=== PATIENT | male | born 1945 | race Caucasian/White ===

== ENCOUNTER 2021-05-01 23:22 | Inpatient (IN) | payer OTHER, MEDICARE, SELFPAY ==
--- NOTE | ~2021-05-01 | XR_ITS ---
EXAMINATION: XR CHEST CLINICAL INFORMATION: TLC placement. COMPARISON: None TECHNIQUE: Frontal view of the chest was obtained. FINDINGS: Support devices: A right-sided central venous catheter seen with tip terminating in the superior vena cava. The lungs appear clear when accounting for hypoinflation. No pneumothorax. The heart and mediastinal structures are unremarkable. XR/XR chest 1V IMPRESSION: 1. Right TLC appears in good position. 2. Hypoinflation without acute cardiopulmonary process.
--- NOTE | ~2021-05-01 | NM_ITS ---
EXAMINATION: PULMONARY PERFUSION STUDY CLINICAL INFORMATION: Acute right ventricular failure, rule out PE. COMPARISON: No previous lung scan is available for comparison. Radiographs of the chest dated 05/02/2021, the same date as this lung scan, are available for comparison. TECHNIQUE: Following the intravenous injection of 4.0 mCi Tc-99m MAA, an 8-view perfusion study was performed using a gamma scintillation camera. FINDINGS: No segmental perfusion defects are present. There is homogeneous distribution of activity bilaterally. There are no focal anatomic appearing perfusion defects present. The cardiac silhouette is mildly dilated. NM/NM pul perfusion IMPRESSION: Very low probability of pulmonary embolism. Mild cardiomegaly.
--- NOTE | ~2021-05-01 | US_ITS ---
EXAMINATION: US VENOUS ULTRASOUND WITH DOPPLER LOWER EXTREMITY, BILATERAL CLINICAL INFORMATION: Bilateral lower extremity swelling. Assess for occult DVT. COMPARISON: None TECHNIQUE: Ultrasound of the deep veins is performed from the hip to the calf with compression sonography and color and pulse Doppler assessment. Spectral analysis with color-flow imaging is performed. Exam is technically challenging, performed portably in ICU. FINDINGS: RIGHT: There is normal venous compression and respiratory variation and augmented flow. The visualized common femoral vein, superficial femoral vein, profunda femoral vein, popliteal vein, and the trifurcation region shows no evidence of deep venous thrombosis. No visible popliteal fossa cyst. LEFT: There is normal venous compression and respiratory variation and augmented flow. The visualized common femoral vein, superficial femoral vein, profunda femoral vein, popliteal vein, and the trifurcation region shows no evidence of deep venous thrombosis. No visible popliteal fossa cyst. US/US venous duplex LE BI IMPRESSION: 1. No DVT demonstrated in the bilateral lower extremity. 2. Technically challenging exam, performed portably in ICU. If the patient's symptoms persist, followup ultrasound in 5 days 7 days might be of value to exclude proximal propagation from a non-visualized calf vein.
[2021-05-02] VITALS (30 sets, daily range): BP systolic 66–121; BP diastolic 36–94; PULSE 47–104; RESP 6–24; TEMP 35.9–36.4; O2SAT 89–100; BMI 34.4; BMI 33.9
--- NOTE | 2021-05-02 | ECG_ITS ---
Test Reason : RHYTHM CHECK Blood Pressure : / mmHG Vent. Rate : 061 BPM Atrial Rate : 063 BPM P-R Int : 000 ms QRS Dur : 102 ms QT Int : 432 ms P-R-T Axes : 000 019 058 degrees QTc Int : 434 ms Atrial fibrillation Abnormal ECG No previous ECGs available Referred By: Bob Saunders Electronically Signed By:JM COTTON
[2021-05-02 00:40] LABS: VBG HCO3 17 mmol/L (22-26); VBG pCO2 26 mmHg; VBG pH 7.43 (7.32-7.43); VBG pO2 61 mmHg
[2021-05-02] MEDS: Sodium Bicarbonate 8.4% 50 MEQ/50 ML VIAL IVPUSH (00:48)
[2021-05-02 00:49] LABS: Hematocrit 28.3 % (42-52); Hemoglobin 9.7 g/dl (14.0-18.0); Mean Corpuscular HGB Conc 34.3 g/dl (31.0-36.0); Mean Corpuscular Volume 84.7 fL (80-98); Mean Platelet Volume 11.1 fL (9.4-12.4); NRBC Pct Auto 1.1 /100WBC (0.0-0.2); Platelet Count 159 X10*3/uL (160-400); Red Blood Count 3.34 X10*6/uL (4.60-5.80); Red Cell Distribution Width 18.5 % (11.0-16.0)
[2021-05-02] MEDS: Albumin Human 25 % 100 ML IV (01:10)
[2021-05-02 01:12] LABS: Band Neutrophils Percent 10 % (3-5); Basophils Abs Manual 0.1 X10*3/uL (0.0-0.3); Basophils Percent Manual 1 % (0-1); Lymphocytes Absolute Manual 0.1 X10*3/uL (0.6-4.8); Lymphocytes Percent Manual 1 % (20-40); Metamyelocytes Percent 7 %; Monocytes Absolute Manual 0.6 X10*3/uL (0.0-1.2); Monocytes Percent Manual 4 % (2-11); Myelocytes Absolute 0.1 X10*/uL; Myelocytes Percent 1 %; Neutrophils Percent Manual 76 % (45-73)
[2021-05-02 01:13] LABS: Lactic Acid 4.2 mmol/L (0.5-2.0); Large Platelet PRESENT; Nucleated Red Blood Cells 1 /100WBC (0-0); Platelet Estimate NORMAL (NORMAL); Platelet Morphology Comment NOTED; Polychromasia 1+ (0-2) /OIF; RBC Morphology NOTED; Target Cells 1+ (5-14) /OIF; Toxic Granulation PRESENT
[2021-05-02 01:15] LABS: Alanine Aminotransferase 167 U/L (0-40); Albumin Level 3.8 g/dL (3.5-5.0); Alkaline Phosphatase 362 U/L (39-117); Anion Gap 24 (12-20); Aspartate Amino Transferase 674 U/L (5-37); Bilirubin Total 6.3 mg/dL (0.0-1.0); Blood Urea Nitrogen 87 mg/dL (9-16); Carbon Dioxide 16 mmol/L (22-29); Chloride 93 mmol/L (96-108); Estimated Glomerular Filt Rate 8; Glucose Random 29 mg/dL (60-115); Magnesium 2.3 mg/dL (1.6-2.6); Phosphorus 6.1 mg/dL (2.7-4.5); Potassium 5.2 mmol/L (3.3-5.1); Sodium 128 mmol/L (135-145); Total Protein 6.9 g/dL (6.5-8.0)
[2021-05-02 01:30] LABS: Thyroid Stimulating Hormone 1.54 uIU/mL (0.32-4.0)
--- NOTE | 2021-05-02 01:37 | P.HPCC_ITS ---
History of Present Illness Date of Service: 05/02/21 Chief Complaint: Hypotension The patient is a 76 year old male with a past medical history of atrial fibrillation (on Eliquis ), hypertension, hyperlipidemia,? and throat cancer? ( last radiation 1 month ago )? who is presenting to [facility] as a ED to ICU transfer from [facility]. The patient ? presented to [facility] emergency department on Sunday afternoon with complaints of generalized weakness and decreased oral intake.? According to the , over the past few weeks the patient has had? difficulty urinating, multiple episodes of diarrhea? and poor? appetite? with noticeable weight loss.? ?On arrival? to [facility] ED, patient was hypotensive to SBP 70s? with HR in the 50s? initially responded? to? 3.5 L bolus and albumin,? but later during the day patient? again? noted to be hypotensive? requiring? placement of central venous line for vasopressor support? [facility] ED course:? Nephrology was consulted,? who advised for starting bicarb drip (D5w + 3 of sodium bicarb) and kayexalate. Patient also received? Zosyn, 500ml of 5% albumin, 100ml of 25% Albumin, 100 hydrocortisone, Dopamine drip started for hypotension and bradycardia but was quickly switched to levophed.? Transfer paperwork reviewed:? ? Laboratory data in was significant for? WBC 18.4,? sodium 126, potassium 5.9,? serum bicarb 19,? creatinine 6.4, total bilirubin 6.1, AST 1196, ALT 233, alk- phos of 465, albumin 2.5,? lactic acid 4.4, Urine:? positive for nitrates and white count. CT Impressions from [facility]? Head CT:? no evidence of acute abnormality Chest CT:? 1- Low-density lesion of the right lower lobe,? concerning neoplasm.?? 2- Mildly enlarged mediastinal lymph nodes? concerning metastatic disease.? 3- Mosaic attenuation of the lungs, most likely? represents small airways disease Abdomen CT:? 1-? multiple liver lesions likely representing metastatic disease? 2-? small amount of abdominal pelvic ascites ?Patient direct admit? to ICU for management of hock requiring vasopressor support? Review of Systems Review of Systems: Constitutional: + weight loss, weakness and fatigue. No fever, chills, Eyes: No visual loss, blurred vision, double vision or yellow sclera ENT: No hearing loss, sneezing, congestion, runny nose or sore throat. Respiratory: No Dyspnea, cough, sputum. No hemoptysis. Cardiovascular: No chest pain, No palpitations. (+)pedal edema. Gastrointestinal: No anorexia, nausea, vomiting or diarrhea. No abdominal pain or blood in stool. Genitourinary: + difficulty urinating. No urinary frequency or incontinence. Neurologic: No headache, dizziness, syncope, unilateral weakness, ataxia, numbness or tingling in the extremities. No change in bowel or bladder control. Musculoskeletal: No muscle pain, back pain, joint pain or stiffness. Skin: No rash or itching. Endocrine: No reports of sweating. No cold or heat intolerance. No polyuria or polydipsia. Psychiatric: No depression or anxiety. 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 If so, by whom?: No Do you feel safe in your current relationship?: Yes Is there a partner from a previous relationship who is making you feel unsafe now?: No Are you made to feel afraid or neglected: No Advance Directives: No Advance Directives Information Provided: No Do you have thoughts of harming others: None Do you have a plan to hurt others: No Plan Recently lost weight without trying: Yes How much weight loss: 2-13 pounds Eating poorly because of decreased appetite: Yes Nutrition screen score: 4 Nutrition Risks: Difficulty swallowing Poor oral hygiene: No Meds Allergies Allergy/AdvReac Type Severity Reaction Status Date / Time No Known Allergies Allergy Verified 05/01/21 23:22 Active Medications: Current Medications Generic Name Dose Route Start Last Admin Trade Name Freq PRN Reason Stop Dose Admin Heparin Sodium (Porcine) 5,000 unit 05/02/21 06:00 Heparin Sodium,Porcine 5,000 Unit/Ml Vial SUBCUT Q8H [facility] Norepinephrine Bitartrate 8 mg in 250 mls @ 0 mls/hr 05/02/21 00:45 05/02/21 00:36 Levophed IVCONT 0.4 mcg/kg/min .Q0M DANIELLE 86.25 mls/hr Titration Protocol Per Protocol Albumin Human 100 mls @ 100 mls/hr 05/02/21 00:47 Kedbumin 25 % IV 05/02/21 01:46 ONCE ONE Vancomycin HCl 750 mg/ Sodium 265 mls @ 265 mls/hr 05/02/21 01:25 Chloride IV 05/02/21 02:24 ONCE ONE Piperacillin Sod/Tazobactam 50 mls @ 100 mls/hr 05/02/21 03:00 Sod 2.25 gm/ Sodium Chloride IV Q12H [facility] Pharmacy Consult 1 each 05/02/21 01:25 Consult Rx Vancomycin Dosing MISCELLANE DAILY PRN Consult order Physical Exam Vital Signs: Vital Signs: Last Vital Signs Temp 97.5 F 05/02/21 00:58 Pulse 51 05/02/21 01:05 Resp 16 05/02/21 01:05 BP 93/51 L 05/02/21 01:05 Pulse Ox 92 05/02/21 01:05 Body Mass Index 34.4 Focused assessment performed on arrival 0005 Constitutional: Alert, Slightly lethargic, but able to open eyes and answer questions. Mental Status: Oriented to person, place and time. Head: Normocephalic. Eyes: Jaundice noticed. Pupils are equal, round and reactive to light Ear, dry mucous membranes. Nose and Throat: Oropharynx cleart. Trachea midline. Neck: Supple, Respiratory: Lungs with crackles. Satting 90-92% on room air. Minor increased work of breathing.?Placed on 2 L via NC Cardiovascular: Afib on monitor. No murmurs, rubs or gallops. Noormal cap refill Gastrointestinal: Abdomen soft, non-tender, non-distended. Normal bowel sounds. No pulsatile mass. No hepatosplenomegaly. Acute care time Genitourinary: Heard present, hematuria. Neurologic: Cranial nerves II-XII grossly intact. No focal neurological deficits. Moves all extremities spontaneously. Sensation intact bilaterally. Skin: Skin dry intact. .? Bilateral pitting lower extremity edema. Musculoskeletal: No cyanosis or clubbing. No gross deformities. Normal range of motion. Psychiatric: Normal mood and affect Results Labs CBC and Chem 7: 05/02/21 00:37 05/02/21 00:37 Labs: Laboratory Results - last 24 hr 05/02/21 05/02/21 05/02/21 00:32 00:37 00:37 MCV 84.7 MCH 29.0 MCHC 34.3 RDW 18.5 H Plt Count 159 L MPV 11.1 Immature Gran % (Auto) Cancelled Neut % (Auto) Cancelled Lymph % (Auto) Cancelled [place] % (Auto) Cancelled Eos % (Auto) Cancelled Baso % (Auto) Cancelled Lymph # (Auto) Cancelled [place] # (Auto) Cancelled Eos # (Auto) Cancelled Baso # (Auto) Cancelled Abs Immat Gran (auto) Cancelled Absolute Neuts (auto) Cancelled Absolute Nucleated RBC 0.160 H Nucleated RBC % (auto) 1.1 H Neutrophils % (Manual) 76 H Band Neutrophils % 10 H Lymphocytes % (Manual) 1 L Monocytes % (Manual) 4 Basophils % (Manual) 1 Metamyelocytes % 7 Myelocytes % 1 Abs Neuts (Manual) 12.0 H Lymphocytes # (Manual) 0.1 L Monocytes # (Manual) 0.6 Basophils # (Manual) 0.1 Metamyelocytes # 1.0 Myelocytes # 0.1 Nucleated RBCs 1 H Toxic Granulation PRESENT Platelet Estimate NORMAL Large Platelets PRESENT Plt Morphology Comment NOTED RBC Morphology NOTED Polychromasia 1+ (0-2) Target Cells 1+ (5-14) VBG pH 7.43 VBG pCO2 26 VBG pO2 61 VBG HCO3 17 L VBG O2 Saturation 87.0 VBG Base Excess -5.0 Anion Gap 24 H Estim Creat Clear Calc 12.0 Estimated GFR 8 Random Glucose 29 L* Lactic Acid Calcium 9.0 Phosphorus 6.1 H Magnesium 2.3 Total Bilirubin 6.3 H AST 674 H ALT 167 H Alkaline Phosphatase 362 H Total Protein 6.9 Albumin 3.8 TSH 1.54 05/02/21 00:37 MCV MCH MCHC RDW Plt Count MPV Immature Gran % (Auto) Neut % (Auto) Lymph % (Auto) [place] % (Auto) Eos % (Auto) Baso % (Auto) Lymph # (Auto) [place] # (Auto) Eos # (Auto) Baso # (Auto) Abs Immat Gran (auto) Absolute Neuts (auto) Absolute Nucleated RBC Nucleated RBC % (auto) Neutrophils % (Manual) Band Neutrophils % Lymphocytes % (Manual) Monocytes % (Manual) Basophils % (Manual) Metamyelocytes % Myelocytes % Abs Neuts (Manual) Lymphocytes # (Manual) Monocytes # (Manual) Basophils # (Manual) Metamyelocytes # Myelocytes # Nucleated RBCs Toxic Granulation Platelet Estimate Large Platelets Plt Morphology Comment RBC Morphology Polychromasia Target Cells VBG pH VBG pCO2 VBG pO2 VBG HCO3 VBG O2 Saturation VBG Base Excess Anion Gap Estim Creat Clear Calc Estimated GFR Random Glucose Lactic Acid 4.2 H* Calcium Phosphorus Magnesium Total Bilirubin AST ALT Alkaline Phosphatase Total Protein Albumin TSH Imaging Radiologist's Impressions: Impressions Chest X-Ray 05/02/21 00:30 IMPRESSION: 1. Right TLC appears in good position. 2. Hypoinflation without acute cardiopulmonary process. Assessment and Plan (1) Septic shock: Status: Acute ?76-year-old male? with a past medical history of? throat cancer? status post radiation x 1 month ago? who presented to? [facility]? with hypotension? and poor p.o. intake ,? patient? in septic shock from possible urinary source.? Incidental findings? in CT scan showed new liver lesions? as we ll as lung? lesions? likely? from metastatic disease.? Neuro: Altered mental status, Patient is lethargic.? Most likely due to? infection. Will continue to monitor mental status Cardiac:?? Septic shock, Sereum WBC 18,? urine positive for? nitrates as well as WBC, elevated lactic acid to 4. ? No evidence of acute infection on Chest/ Abdomen CTs.? UTI likely cause of septic shock.? Received? stress dose of hydrocortisone as well as appropriate? fluid resuscitation with 3.5L of NS and albumin at [facility] ED.? On Levophed. ? Will continue empiric antibiotics.? Wean off pressors when appropriate. Pulmonary:? ?No acute issues Renal:?? Acute Kidney Injury-? creatinine? of 6.[facility], now 6.59 ,? has had poor p.o. Intake? as well as some difficulty urinating in the past couple days,? RADHA most likely related to hypoperfusion, nonoliguric. ? Renal? consulted our [facility] Medical,? advice for bicarb drip x 1? and? Kayexalate. Received appropriate fluid resuscitation.? Will continue to to check renal induces and urine output.? Renal consult? here at [place].? Hyperkalemia - K of 5.9 at [facility], down to 5.2. No peaked T waves.? Received Kayexalate at? [facility]. Will continue to closely monitor for symptoms of hyperkalemia. Hematuria:? bloody urine was noted in the Heard catheter ? With some clots.? Nursing? able to flush catheter.? Hemoglobin is stable at this time.? Will cont inue to closely monitor.? Urology consult in the morning.? Endo:? No acute issues.?? GI:?Patient with difficulty swallowing-? will place speech eval in the morning.? ID:? Septic shock from UTI.? Patient received Zosyn in [facility] ED. Blood cultures as well as urine culture done at [facility].? Will repeat blood cultures here. Will continue Zosyn, and add empiric dose of vancomycin. Heme/Onc:?? Throat cancer with ? Mets:? patient status post radiation x1 month ago, ? did not receive chemo. Chest CT and Abdomen CT with new lesions? concerning for metastatic disease.? Psych:? No acute issues. Miscellaneous:?? ?I personally called patient?s Bryanna Bentley,? review plan of care and CT scans? findings as goals of care at this time. ? Patient and would like to continue full code.? Diet: NPO ( pending speech eval) prophylaxis: Subcut Heparin, (Holding eliquis at this time). No GI prophylaxis at this time Critical care time:? X 90 minutes of critical care time Code? status: FULL code? ?Case discussed with attending Dr Mar (2) UTI (urinary tract infection): Status: Acute (3) Acute renal failure: Status: Acute (4) RADHA (acute kidney injury): Status: Acute (5) Hematuria: Status: Acute (6) Metastatic cancer: Status: Acute (7) Hyperkalemia: Status: Acute
[2021-05-02 01:44] LABS: Glucose, Whole Blood 104 mg/dL (60-115)
[2021-05-02 01:46] LABS: Venous Blood Gas Refer to POC result
[2021-05-02] MEDS: vancomycin HCL 750 MG in 0.9 % Sodium Chloride 250 ML 132.5 MG IV (02:16)
[2021-05-02] MEDS: Piperacillin Sodium/Tazobactam 2.25 GM in 0.9 % Sodium Chloride 50 ML IV ×2 (02:17→15:03)
[2021-05-02 02:46] LABS: Reflex Lactate? Lactic Acid Added
--- NOTE | 2021-05-02 03:23 | PC.NURSE ---
Report received from Dania Garcia RN at [facility]. Patient requiring transfer to ICU level of care for levophed gtt. Patient arrived to unit at 0005, via stretcher/ambulance. Patient had normal saline infusing through central line. Per EMS, levophed drip was turned off at [facility] prior to transport. Initial BP on arrival was in the 60s. patient was placed back on a levophed drip, and drip was titrated as necessary. Patient was able to communicate some history but was vague with some responses.
[2021-05-02 03:43] LABS: ~Lactic Acid-LAB USE ONLY 5.3 mmol/L (0.5-2.0)
[2021-05-02 05:16] LABS: Reflex Lactate? 2 Y
[2021-05-02 05:28] LABS: VBG Base Excess -6.8 mmol/L; VBG HCO3 17 mmol/L (22-26); VBG pCO2 29 mmHg; VBG pH 7.37 (7.32-7.43); VBG pO2 41 mmHg
[2021-05-02 05:36] LABS: Hemoglobin 10.3 g/dl (14.0-18.0); Mean Corpuscular HGB Conc 34.3 g/dl (31.0-36.0); Mean Corpuscular Hemoglobin 29.4 pg (27.0-33.0); Mean Corpuscular Volume 85.7 fL (80-98); Mean Platelet Volume 11.6 fL (9.4-12.4); NRBC Pct Auto 1.3 /100WBC (0.0-0.2); Platelet Count 206 X10*3/uL (160-400); Red Cell Distribution Width 18.9 % (11.0-16.0); White Blood Count 23.7 X10*3/uL (4.8-10.8)
[2021-05-02 05:56] LABS: Band Neutrophils Percent 15 % (3-5); Burr Cells 1+ (0-2) /OIF; Giant Platelet PRESENT; Large Platelet PRESENT; Lymphocytes Absolute Manual 1.7 X10*3/uL (0.6-4.8); Lymphocytes Percent Manual 7 % (20-40); Metamyelocytes Absolute 1.4 X10*3/uL; Metamyelocytes Percent 6 %; Monocytes Absolute Manual 1.2 X10*3/uL (0.0-1.2); Monocytes Percent Manual 5 % (2-11); Myelocytes Absolute 0.5 X10*/uL; Myelocytes Percent 2 %; Neutrophils Percent Manual 65 % (45-73); Nucleated Red Blood Cells 3 /100WBC (0-0); Platelet Estimate NORMAL (NORMAL); Platelet Morphology Comment NOTED; Polychromasia 1+ (0-2) /OIF; RBC Morphology NOTED; Target Cells 1+ (5-14) /OIF; Toxic Granulation PRESENT
[2021-05-02 06:04] LABS: Alanine Aminotransferase 174 U/L (0-40); Alkaline Phosphatase 365 U/L (39-117); Anion Gap 27 (12-20); Aspartate Amino Transferase 720 U/L (5-37); Bilirubin Total 6.6 mg/dL (0.0-1.0); Blood Urea Nitrogen 88 mg/dL (9-16); Calcium 8.9 mg/dL (8.4-10.2); Carbon Dioxide 15 mmol/L (22-29); Chloride 92 mmol/L (96-108); Creatinine Clr Calc Pharmacy 11.8; Estimated Glomerular Filt Rate 8; Glucose Random 42 mg/dL (60-115); Magnesium 2.4 mg/dL (1.6-2.6); Phosphorus 6.9 mg/dL (2.7-4.5); Potassium 5.6 mmol/L (3.3-5.1); Sodium 128 mmol/L (135-145); Total Protein 7.3 g/dL (6.5-8.0)
[2021-05-02 06:05] LABS: ~Lactic Acid-LAB USE ONLY 5.1 mmol/L (0.5-2.0)
[2021-05-02] MEDS: Dextrose 10 % 1,000 ML 50 ML IVCONT (06:26)
[2021-05-02 07:01] LABS: Glucose, Whole Blood 107 mg/dL (60-115)
[2021-05-02 07:08] LABS: Ammonia 73 umol/L (13-55)
[2021-05-02 07:11] LABS: Venous Blood Gas Refer to POC result
--- NOTE | 2021-05-02 08:23 | P.CDIC_ITS ---
CDI Concurrent Query Service Date: 05/03/21 Documentation Clarification: Please clarify if you are treating a proba ble/suspected/likely or confirmed: Altered mental status: Septic encephalopathy Toxic encephalopathy Metabolic encephalopathy Other Please specify if known or undetermined Provider Response: Metabolic Encephalopathy PLEASE DO NOT DELETE/MODIFY EXISTING CONTENT Additional information is needed in order to code to the highest accuracy and appropriate Severity of Illness (SOI). Please clarify the information noted below in your progress notes and discharge summary. Risk Factors/Clinical Indicators/Treatments Altered mental status, most likely due to the infection. poor intake, septic shock likely from the urinary tract infection/RADHA. ICU admit. Weight loss, throat cancer concerning for mets. Empiric antibiotics for infection, vasopressors, IV fluids. CDS: Genoveva Green CCS, CDIS Contact Number: [phone] Please Review the information above and exercise your independent professional judgment in responding to the query. If you concur, pleas document in the PROGRESS NOTES and DISCHARGE SUMMARY. If you do not agree with the query, please document in the query above. THIS QUERY IS PART OF THE PERMANENT MEDICAL RECORD
--- NOTE | 2021-05-02 08:31 | HE.PHANOTE ---
Pharmacy Consult ? Medication Reconciliation Pharmacy has completed the medication reconciliation and there were no significant medication issues requiring provider attention.? Kortney ChavezD
--- NOTE | 2021-05-02 10:00 | MHC.CM.PN ---
05/02/21 IM from [facility] Male 76 DX Hypotension He lives with his . He has physically declined in the past month. At baseline, he was using a cane and was independent with ADLs. Pts PCP is DR Moore @[facility]. PCP is new. He has not had an appointment yet. His former MD left the practice. DP is STR for strengthening. T/W spoke with Pt and his for preferences for STR. Referrals have been sent. A HCP has been documented. CM will follow.
[2021-05-02] MEDS: Sodium Bicarbonate 8.4% 150 MEQ in Dextrose 5 % 850 ML 75 MEQ IV (10:29)
[2021-05-02] MEDS: DOPamine HCL/D5W 400 MG/250 ML PLAST..BAG 21.26 MG IVCONT (10:39)
--- NOTE | 2021-05-02 10:39 | MHC.SL.SWA ---
Speech Pathologist Impression: Risk of Aspiration Oralpharyngeal Dysphagia Dysphasia Diet Status: Upgrade Liquid Consistency and Strategies for Safe Swallow: Liquid Intake Recommendation: Honey Thick Liquid Intake Strategies: Small Sips No Straws Solid Food Consistency: Dietary Recommendations: Chopped/Advanced (NDD3) Additional Modifications to Solid Foods: Recommend CHOPPED/ADVANCED (NDD3) solids and HONEY THICK liquids with pills WHOLE in PUREE. Patient is able to feed himself, but may require assistance with tray set up. Recommend supervision to monitor for any overt s/s of aspiration and to ensure aspiration precautions. Oral Medication Intake: Whole with Puree Compensatory Strategies and Precautions to be Taken for Safe Swallow: Sitting Upright (90 deg) No Straw Small Bites and Sips Alternate Liquids/Solids Rate of Ingestion Change Oral Check Supervision While Eating and Drinking for Safe Swallow: Total Supervision (1:1) Foods to Avoid: Avoid tough/sticky foods. Recommend supervision to monitor for any overt s/s of aspiration and to ensure aspiration precautions. Swallowing Recommended Treatments: Compens. Strategy Educat. Recommendation for Speech: Inpatient Speech Therapy Modified Barium Swallow Study - Outpatient Comment: [facility]TER will continue to follow as appropriate during hospitalization. Given history of throat cancer, patient may benefit from MBSS if concern persists. Senior Investigator Clinican/Clinical Fellow: No Supervisory Statement: I have reviewed and agree with the student/clinical fellow's documentation: N/A Speech Language Pathologist: Hollie Moreau M.A., [facility]
--- NOTE | 2021-05-02 10:46 | CA_ITS ---
Transthoracic Echocardiogram Patient (Last, First, Middle): Berry Calhoun F Gender: Male Date of : 1945 Age: 76 Procedure Date: 05/02/2021 Procedure Type: Transthoracic Echocardiogram Location: ICU Height: 182.88 cm Weight: 113.4 kg BSA: 2.34 m2 Heart Rate: bpm BP: 115 / 52 mmHg Hot Packer: FRANCISCO Larios MD: Ismael Seals MD Staff Nurse Icu Resource Team: Kimani Martinez MD Symptoms: refractory hypotension. R/o PE Study Quality: Fair ECG Rhythm: Undetermined Conclusions: - 1. Normal LV systolic function 2. Enlarged RV with free wall hypokinesis could suggest acute cor pulmonale 3. Moderate to severe tricuspid regurgitation 4. Consider a full echocardiographic study Findings Left Ventricle Normal left ventricular size, thickness, and systolic function. The visually estimated ejection fraction is between 55-60%. There is a flattened septum in systole consistent with right ventricular pressure overload. Diastolic function is indeterminate on the basis of available data. Right Ventricle Severely increased right ventricular cavity size. There is mild to moderately decreased right ventricular systolic function. The right ventricular free wall is hypokinetic. Tricuspid Valve There is moderate to severe tricuspid valve regurgitation. Venous The inferior vena cava was not well visualized. Pericardium/Pleural There is no evidence of pericardial effusion. Prior Study Comparison No prior study available for comparison. Measurements Tricuspid Valve TR Pk Elder: 2.40 TR Pk Grad: 23.00 Updated in Other Vendor System with Status of Final Kimani Martinez MD electronically signed on 05/02/2021 11:54:15 AM with status of Final
--- NOTE | 2021-05-02 11:21 | P.PNCC_ITS ---
Subjective Subjective Date of Service: 05/02/21 Critical Care Time (minutes): 180 Comment: Mr. Calhoun was transferred to ICU from the [facility] ED late last night bec of hypotension and presumed septic shock.? There were no ICU beds available at [facility]. The patient is a 68-year-old male with past medical history of throat cancer, status post excision of a vocal cord lesion, and status post radiation therapy, last XRT treatment was a month or more ago.? According to the patient and his , they got all the tumor and no chemotherapy was needed.? The patient also has a history of hypertension, and atrial fibrillation.? He is on atenelol, losartan, Procardia, and apixaban.? I spoke with Dr. Maik Soto.? We looked through the [facility] EMR system and through the cardiology office records.? The patient had no records of a previous echocardiogram.? The patient lives at home with his , who is a fourdrinier tender (Bryanna Bentley, ). HISTORY OF PRESENT ILLNESS: ?The patient was reportedly doing well after his radiation.? However, over the past few days has developed generalized weakness and poor p.o. intake and generally not feeling well.? The patient's noticed that he was jaundiced.? She brought him in the car to the [facility] ED yesterday just before noon. In the ED, the patient was hypotensive with a blood pressure 70/52, and heart rate of 58.? Room air saturation was 100%.? He was afebrile.? He was in no acute distress.? He was talking and oriented, and denied fever chills or sweats.? He denied cough or shortness of breath, or GI symptoms.? The abdomen was benign, stool was guaiac negative. Labs in the ED at [facility] were notable for white count of 18, hemoglobin of 11, platelet count of 176. PT was 22/1.9.? The sodium was 126, potassium 5.9, chloride 92, bicarb 19, BUN and creatinine 87/6.4, glucose 84, total bili 6.1, direct bili 5.1, AST/ALT 1196/233, albumin was 2.5, lipase was 904, 1st troponin was 20, the repeat troponin was 17, and lactic acid was 4.4.? Urinalysis was notable for positive nitrite, large leukocyte esterase, 64 white cells, and heavy urine bacteria.? Urine sodium was 8.? COVID PCR was negative. Head CT showed no evidence of acute abnormality.? Noncontrast chest CT was notable for a low-density lesion of the right lower lobe, concerning for neoplasm.? There were mildly enlarged mediastinal lymph nodes, concerning for metastatic disease. Abdominal CT was notable for multiple liver lesions, likely representing metastatic disease.? There was a small amount of abdominal-pelvic ascites. The patient was given Zosyn and volume resuscitated.? Despite that, the blood pressure did not come up.? A central line was placed and the patient was put on vasopressors.? He was given hydrocortisone and Kayexalate. ?When no bed was available in the [facility] ICU, a call was placed to our ICU and the patient was accepted and transferred here directly from their ED. On arrival here, the patient was slightly the lethargic but able to answer questions.? He was jaundice. ?He had minor increased work of breathing , with a sat of 90-92% on room air.? The belly was benign.? Labs here were notable for white count of 14, sodium of 128, BUN and creatinine of 87/6.5, potassium 5.2, a bicarb of 16, glucose of 29, phosphorus of 6.1, total bili of 6.3, lactic acid of 4.2.? A venous blood gas showed 7.43/26/-5.? EKG showed atrial fibrillation with diffuse low-voltage, with no ischemic changes. The patient was given bicarbonate and D10.? He was continued on Zosyn. This morning, on my exam, the patient was awake, maybe slightly disoriented.? Looks like he has Kussmaul breathing.? He?s nontoxic appearing. ?Respiratory rate was about 18, Sat was 96-100% on room air.? Heart rate was about 58, blood pressure was about 90/50 on Levophed at 0.44 mcg.? Temperature was 96.9 degrees.? The patient had marked JVD to the angle of the mandible with the head of the bed at 20-30 degrees.? Chest was clear to auscultation, with a normal expiratory phase.? Heart rate and rhythm were irregular, atrial fibrillation on the monitor I heard no murmur or gallops.? Abdomen was benign.? The patient had 1-2+ lower extremity and central edema, right noticeably greater than left.? Neuro exam was nonfocal. The patient denied any history of sleep apnea, but his did say that he snores, and his facial habitus is very suggestive.? The the patient's told me his legs have been edematous for maybe a few weeks. LABORATORY DATA:? As below.? Notably, white count this morning was 23, hemoglobin 10.? Central venous blood gas showed 7.37/29/-6.? Sodium was 128, potassium 5.6, BUN/creatinine 88/6.7, bicarb 15, random glucose 42, lactic acid was 5.1, phosphorus was 6.9, T bili was 6.6, ammonia level was 73. My bedside ECHOCARDIOGRAM showed the following:? LV wall thickness probably normal, LV systolic function normal with EF at least 60%.? The left ventricle looks underfilled and the septum is markedly flattened.? The right ventricle is markedly enlarged, with RV:LV cavity ratio at least 2.0-2.5.? 1-2 +MR.? 4+ TR, with a broad jet that half-fills the atrium.? CWD measured 2.4m/sec (gradient 23mm).? IVC measured 2.8cm.? RVSP estimate 38mm. I had the proof technician helper come over to do a limited echo while I watched.? Her findi ngs were almost identical to mine. Venous duplex scan showed no DVT.? The patient underwent a perfusion scan, which I reviewed with Dr. Urias in Radiology.? There was no evidence of pulmonary embolism.? Mild cardiomegaly was noted. A follow-up lactate came back at 10. The patient was making no urine throughout the day. MICROBIOLOGY:? Blood and urine cultures at [facility] are showing no growth so far. IMPRESSION: 1. Cardiogenic shock secondary to right heart failure.? Cause of the right heart failure is unclear.? There is no apparent pulmonary embolism, nor right ventricular ischemia/infarction.? And the patient certainly does not have left heart failure. ??? The patient may well have chronic right heart failure 2? to obesity and sleep apnea.? His peripheral edema and JVD would be consistent with that.? But it?s acute right heart failure that is undoubtedly responsible for his shock.? I don?t think he has septic shock (see below). 2. Acute renal failure.? Most likely secondary to ATN secondary to cardiogenic shock.? The echo clearly indicates that volume infusion is unlikely to be helpful 3. Acute hepatic failure.? Again most likely secondary to cardiogenic shock. 4. Likely metastatic cancer.? Unclear whether this is metastatic head and neck cancer, or a new, as yet undiscovered primary. 5. ID:? I?m not surprised that his urine and blood cultures are negative.? Clinically, he does not look septic. ?It's my bet that the patient in fact has no infection at all.? Nevertheless, continuing Zosyn one more day. I discussed the patient's situation at length with Dr. Martinez from Cardiology and Dr. Mar from Pulmonary..? None of us could come up with a good cause for his acute right heart failure.? I attempted transfer to [facility].? There were no beds in the medical ICU. ?When I spoke with the attending from the CCU, she also had no ideas about the cause of his right heart failure, but felt quite certain that he was not going to survive.? She had no suggestions in regards to treatment that might be salutary, and suggested STOGY MAKER status. I reviewed the perfusion scan at length with Dr. Urias in the Department of Radiology.? She felt that the perfusion scan was an excellent study, and that there was very little chance that a significant pulmonary embolism was missed.? She felt strongly that there was no reason to do a CT angiogram (notwithstanding his renal function). After all the above, I spoke with the patient and his together, and let them know about the metastatic cancer, the acute right heart failure which was not likely to be survivable, and the renal failure for which he was definitely going to need dialysis.? After I spoke with the two of them together, I spoke with the in private.? She was very certain that he would not want dialysis or life support, and was leaning towards comfort measures.? She spoke with him about that, and then I went in and spoke with them together about what he was facing.? They both decided on comfort measures.? We are proceeding along those lines. Critical care time (including multiple visits to the bedside):? 3+ hrs Physical Exam Vital Signs: Vital Signs: Last Vital Signs Temp 96.9 F 05/02/21 08:00 Pulse 100 05/02/21 11:00 Resp 23 H 05/02/21 11:00 BP 115/52 L 05/02/21 11:00 Pulse Ox 91 L 05/02/21 11:00 Body Mass Index 33.9 Objective Data Labs CBC & Chem 7: 05/02/21 05:21 05/02/21 12:18 Labs: Laboratory Results - last 24 hr 05/02/21 05/02/21 05/02/21 00:32 00:37 00:37 WBC 14.0 H RBC 3.34 L Hgb 9.7 L Hct 28.3 L MCV 84.7 MCH 29.0 MCHC 34.3 RDW 18.5 H Plt Count 159 L MPV 11.1 Immature Gran % (Auto) Cancelled Neut % (Auto) Cancelled Lymph % (Auto) Cancelled [place] % (Auto) Cancelled Eos % (Auto) Cancelled Baso % (Auto) Cancelled Lymph # (Auto) Cancelled [place] # (Auto) Cancelled Eos # (Auto) Cancelled Baso # (Auto) Cancelled Abs Immat Gran (auto) Cancelled Absolute Neuts (auto) Cancelled Absolute Nucleated RBC 0.160 H Nucleated RBC % (auto) 1.1 H Neutrophils % (Manual) 76 H Band Neutrophils % 10 H Lymphocytes % (Manual) 1 L Monocytes % (Manual) 4 Basophils % (Manual) 1 Metamyelocytes % 7 Myelocytes % 1 Abs Neuts (Manual) 12.0 H Lymphocytes # (Manual) 0.1 L Monocytes # (Manual) 0.6 Basophils # (Manual) 0.1 Metamyelocytes # 1.0 Myelocytes # 0.1 Nucleated RBCs 1 H Toxic Granulation PRESENT Platelet Estimate NORMAL Large Platelets PRESENT Giant Platelets Plt Morphology Comment NOTED RBC Morphology NOTED Polychromasia 1+ (0-2) Target Cells 1+ (5-14) Kathia Cells Smear Path Review SEE NOTE VBG pH 7.43 VBG pCO2 26 VBG pO2 61 VBG HCO3 17 L VBG O2 Saturation 87.0 VBG Base Excess -5.0 Sodium 128 L Potassium 5.2 H Chloride 93 L Carbon Dioxide 16 L Anion Gap 24 H BUN 87 H* Creatinine 6.59 H* Estim Creat Clear Calc 12.0 Estimated GFR 8 POC Glucose Random Glucose 29 L* Lactic Acid Lactic Acid Fup @ 2Hr Lactic Acid Fup @ 4Hr Calcium 9.0 Phosphorus 6.1 H Magnesium 2.3 Total Bilirubin 6.3 H AST 674 H ALT 167 H Alkaline Phosphatase 362 H Ammonia Total Protein 6.9 Albumin 3.8 TSH 1.54 05/02/21 05/02/21 05/02/21 00:37 01:39 03:12 WBC RBC Hgb Hct MCV MCH MCHC RDW Plt Count MPV Immature Gran % (Auto) Neut % (Auto) Lymph % (Auto) [place] % (Auto) Eos % (Auto) Baso % (Auto) Lymph # (Auto) [place] # (Auto) Eos # (Auto) Baso # (Auto) Abs Immat Gran (auto) Absolute Neuts (auto) Absolute Nucleated RBC Nucleated RBC % (auto) Neutrophils % (Manual) Band Neutrophils % Lymphocytes % (Manual) Monocytes % (Manual) Basophils % (Manual) Metamyelocytes % Myelocytes % Abs Neuts (Manual) Lymphocytes # (Manual) Monocytes # (Manual) Basophils # (Manual) Metamyelocytes # Myelocytes # Nucleated RBCs Toxic Granulation Platelet Estimate Large Platelets Giant Platelets Plt Morphology Comment RBC Morphology Polychromasia Target Cells Kathia Cells Smear Path Review VBG pH VBG pCO2 VBG pO2 VBG HCO3 VBG O2 Saturation VBG Base Excess Sodium Potassium Chloride Carbon Dioxide Anion Gap BUN Creatinine Estim Creat Clear Calc Estimated GFR POC Glucose 104 Random Glucose Lactic Acid 4.2 H* Lactic Acid Fup @ 2Hr 5.3 H* Lactic Acid Fup @ 4Hr Calcium Phosphorus Magnesium Total Bilirubin AST ALT Alkaline Phosphatase Ammonia Total Protein Albumin [facility] 05/02/21 05/02/21 05/02/21 05:19 05:21 05:21 WBC 23.7 H RBC 3.50 L Hgb 10.3 L Hct 30.0 L MCV 85.7 MCH 29.4 MCHC 34.3 RDW 18.9 H Plt Count 206 D MPV 11.6 Immature Gran % (Auto) Cancelled Neut % (Auto) Cancelled Lymph % (Auto) Cancelled [place] % (Auto) Cancelled Eos % (Auto) Cancelled Baso % (Auto) Cancelled Lymph # (Auto) Cancelled [place] # (Auto) Cancelled Eos # (Auto) Cancelled Baso # (Auto) Cancelled Abs Immat Gran (auto) Cancelled Absolute Neuts (auto) Cancelled Absolute Nucleated RBC 0.300 H Nucleated RBC % (auto) 1.3 H Neutrophils % (Manual) 65 Band Neutrophils % 15 H Lymphocytes % (Manual) 7 L Monocytes % (Manual) 5 Basophils % (Manual) Metamyelocytes % 6 Myelocytes % 2 Abs Neuts (Manual) 19.0 H Lymphocytes # (Manual) 1.7 Monocytes # (Manual) 1.2 Basophils # (Manual) Metamyelocytes # 1.4 Myelocytes # 0.5 Nucleated RBCs 3 H Toxic Granulation PRESENT Platelet Estimate NORMAL Large Platelets PRESENT Giant Platelets PRESENT Plt Morphology Comment NOTED RBC Morphology NOTED Polychromasia 1+ (0-2) Target Cells 1+ (5-14) [place] Cells 1+ (0-2) Smear Path Review VBG pH 7.37 VBG pCO2 29 VBG pO2 41 VBG HCO3 17 L VBG O2 Saturation 62.0 VBG Base Excess -6.8 Sodium 128 L Potassium 5.6 H Chloride 92 L Carbon Dioxide 15 L Anion Gap 27 H BUN 88 H* Creatinine 6.72 H* Estim Creat Clear Calc 11.8 Estimated GFR 8 POC Glucose Random Glucose 42 L* Lactic Acid Lactic Acid Fup @ 2Hr Lactic Acid Fup @ 4Hr Calcium 8.9 Phosphorus 6.9 H Magnesium 2.4 Total Bilirubin 6.6 H AST 720 H ALT 174 H Alkaline Phosphatase 365 H Ammonia Total Protein 7.3 Albumin 4.0 TSH 05/02/21 05/02/21 05/02/21 05:21 06:38 06:58 WBC RBC Hgb Hct MCV MCH MCHC RDW Plt Count MPV Immature Gran % (Auto) Neut % (Auto) Lymph % (Auto) [place] % (Auto) Eos % (Auto) Baso % (Auto) Lymph # (Auto) [place] # (Auto) Eos # (Auto) Baso # (Auto) Abs Immat Gran (auto) Absolute Neuts (auto) Absolute Nucleated RBC Nucleated RBC % (auto) Neutrophils % (Manual) Band Neutrophils % Lymphocytes % (Manual) Monocytes % (Manual) Basophils % (Manual) Metamyelocytes % Myelocytes % Abs Neuts (Manual) Lymphocytes # (Manual) Monocytes # (Manual) Basophils # (Manual) Metamyelocytes # Myelocytes # Nucleated RBCs Toxic Granulation Platelet Estimate Large Platelets Giant Platelets Plt Morphology Comment RBC Morphology Polychromasia Target Cells Kathia Cells Smear Path Review VBG pH VBG pCO2 VBG pO2 VBG HCO3 VBG O2 Saturation VBG Base Excess Sodium Potassium Chloride Carbon Dioxide Anion Gap BUN Creatinine Estim Creat Clear Calc Estimated GFR POC Glucose 107 Random Glucose Lactic Acid Lactic Acid Fup @ 2Hr Lactic Acid Fup @ 4Hr 5.1 H* Calcium Phosphorus Magnesium Total Bilirubin AST ALT Alkaline Phosphatase Ammonia 73 H Total Protein Albumin TSH Quality Stroke Does the patient have a stroke diagnosis?: No VTE Prior VTE?: No VTE Risk Level:: Medical - moderate - high VTE Device Contraindication: Treatment Not Indicated VTE Drug Contraindication: N/A - Med Ordered Critical Care Time Critical Care Time (minutes): 180
[2021-05-02 12:05] LABS: Glucose, Whole Blood 101 mg/dL (60-115)
[2021-05-02 12:22] LABS: VBG Base Excess -13.9 mmol/L; VBG HCO3 11 mmol/L (22-26); VBG pCO2 24 mmHg; VBG pH 7.25 (7.32-7.43); VBG pO2 50 mmHg
[2021-05-02 12:25] LABS: Venous Blood Gas Refer to POC result
[2021-05-02 13:02] LABS: Lactic Acid 10.6 mmol/L (0.5-2.0)
[2021-05-02 13:22] LABS: Anion Gap 33 (12-20); Blood Urea Nitrogen 89 mg/dL (9-16); Carbon Dioxide 10 mmol/L (22-29); Chloride 92 mmol/L (96-108); Creatinine Clr Calc Pharmacy 11.1; Estimated Glomerular Filt Rate 8; Glucose Random 94 mg/dL (60-115); Potassium 5.9 mmol/L (3.3-5.1); Sodium 129 mmol/L (135-145)
[2021-05-02 14:23] LABS: Reflex Lactate? Lactic Acid Added
[2021-05-02 15:19] LABS: Lactate Dehydrogenase 1154 U/L (118-273); Uric Acid 12.3 mg/dL (3.4-7.0)
[2021-05-02 15:32] LABS: ~Lactic Acid-LAB USE ONLY 11.5 mmol/L (0.5-2.0)
[2021-05-02 15:54] LABS: Glucose, Whole Blood 91 mg/dL (60-115)
[2021-05-02] MEDS: HYDROmorphone HCl 2 MG/ML VIAL 1 MG IVPUSH ×4 (15:57→19:39)
[2021-05-02 16:37] LABS: Reflex Lactate? 2 Y
[2021-05-02 17:06] LABS: Cancel Lactic Acid Canceled
--- NOTE | 2021-05-02 19:05 | PC.NURSE ---
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 1600 drips began titrating down per Stemp . Dilaudid given IVP for WOB and discomfort. Pt now resting comfortably in bed with family at bedside.
[2021-05-03 10:24] LABS: Anion Gap 29 (12-20); Blood Urea Nitrogen 102 mg/dL (9-16); Calcium 7.8 mg/dL (8.4-10.2); Carbon Dioxide 14 mmol/L (22-29); Chloride 92 mmol/L (96-108); Creatinine Clr Calc Pharmacy 10.4; Estimated Glomerular Filt Rate 7; Glucose Random 39 mg/dL (60-115); Potassium 7.4 mmol/L (3.3-5.1); Sodium 128 mmol/L (135-145)
--- NOTE | 2021-05-03 11:50 | P.PNCC_ITS ---
Subjective Subjective Date of Service: 05/03/21 Critical Care Time (minutes): 0 Comment: Mr. Calhoun is in the ICU with multiple organ system failure and ONLINE CONTENT COORDINATOR status.? See my progress note from yesterday. Overnite the patient has been obtunded, breathing with RR of 6-8/min on room air, Kussmaul respiratory pattern, with Sat 96%.? HR is running 30-40, BP 56/31.? He looks comfortable.? Chest shows coarse BS.? Airway is clear. LABORATORY DATA:? See below. IMPRESSION: 1. Cardiogenic shock secondary to right heart failure.? Cause of the right heart failure is unclear.? There is no apparent pulmonary embolism, nor right ventricular ischemia/infarction.? And the patient certainly does not have left heart failure. ??? The patient may well have chronic right heart failure 2? to obesity and sleep apnea.? His peripheral edema and JVD would be consistent with that.? But it?s acute right heart failure that is undoubtedly responsible for his shock.? I don?t think he has septic shock (see below). 2. Acute renal failure.? Most likely secondary to ATN secondary to cardiogenic shock.? The echo clearly indicates that volume infusion is unlikely to be helpful 3. Acute hepatic failure.? Again most likely secondary to cardiogenic shock. 4. Likely metastatic cancer.? Unclear whether this is metastatic head and neck cancer, or a new, as yet undiscovered primary. 5. ID:? I?m not surprised that his urine and blood cultures are negative.? Clinically, he does not look septic.? It's very possible, even likely, that has no infection at all. Continue with ONLINE CONTENT COORDINATOR status. Time:? 32110 Physical Exam Vital Signs: Vital Signs: Last Vital Signs Temp 96.7 F L 05/02/21 15:53 Pulse 48 L 05/02/21 19:00 Resp 6 L 05/02/21 19:00 BP 68/42 L 05/02/21 19:00 Pulse Ox 96 05/02/21 19:00 Body Mass Index 33.9 Objective Data Labs CBC & Chem 7: 05/02/21 05:21 05/03/21 09:18 Labs: Laboratory Results - last 24 hr 05/02/21 05/02/21 05/02/21 12:02 12:14 12:18 VBG pH 7.25 L VBG pCO2 24 VBG pO2 50 VBG HCO3 11 L VBG O2 Saturation 68.0 VBG Base Excess -13.9 Sodium 129 L Potassium 5.9 H Chloride 92 L Carbon Dioxide 10 L* D Anion Gap 33 H BUN 89 H* Creatinine 7.07 H* Estim Creat Clear Calc 11.1 Estimated GFR 8 POC Glucose 101 Random Glucose 94 D Lactic Acid Lactic Acid Fup @ 2Hr Uric Acid 12.3 H Calcium 9.0 Lactate Dehydrogenase 1154 H 05/02/21 05/02/21 05/02/21 12:18 14:32 15:50 VBG pH VBG pCO2 VBG pO2 VBG HCO3 VBG O2 Saturation VBG Base Excess Sodium Potassium Chloride Carbon Dioxide Anion Gap BUN Creatinine Estim Creat Clear Calc Estimated GFR POC Glucose 91 Random Glucose Lactic Acid 10.6 H* Lactic Acid Fup @ 2Hr 11.5 H* Uric Acid Calcium Lactate Dehydrogenase 05/03/21 09:18 VBG pH VBG pCO2 VBG pO2 VBG HCO3 VBG O2 Saturation VBG Base Excess Sodium 128 L Potassium 7.4 H* D Chloride 92 L Carbon Dioxide 14 L Anion Gap 29 H BUN 102 H* Creatinine 7.55 H* Estim Creat Clear Calc 10.4 Estimated GFR 7 POC Glucose Random Glucose 39 L* Lactic Acid Lactic Acid Fup @ 2Hr Uric Acid Calcium 7.8 L D Lactate Dehydrogenase Microbiology Microbiology Results: Microbiology 05/02/21 00:42 Blood - Venous Blood Culture - Preliminary No growth after 24 hours. 05/02/21 00:37 Blood - Venous Blood Culture - Preliminary No growth after 24 hours. Quality Stroke Does the patient have a stroke diagnosis?: No VTE Prior VTE?: No VTE Risk Level:: Medical - moderate - high VTE Device Contraindication: Treatment Not Indicated VTE Drug Contraindication: N/A - Med Ordered
--- NOTE | 2021-05-03 12:09 | CONS_ITS ---
DATE OF SERVICE: 05/02/2021 I was called to see this patient to assist in the management of acute kidney injury. 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 He was in the ER with hypotension and he was given some pressor. However, the pressors were shut down during transportation. According to the ICU nurse, on arrival his systolic blood pressure was in the 60s. At present, he is on pressors. He is oliguric and also has developed acidosis with hyperkalemia and hence this consultation. 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 REVIEW OF SYSTEMS: Obtained from the chart. He had some weight loss with fatigue and weakness. No shortness of breath. No chest pain. No urinary symptoms. No fever. No rash. No hematuria. FAMILY HISTORY: Noncontributory to this admission. SOCIAL HISTORY: He has history of smoking in the past. He does not smoke anymore. ALLERGIES: NO KNOWN DRUG ALLERGIES. MEDICATIONS: All the current medications were reviewed including levophed, vancomycin, Zosyn. PHYSICAL EXAMINATION: GENERAL: Berry is a 76-year-old man. He is awake, comfortable, not in any distress. NECK: Supple. No JVD. HEENT: Mucosa is dry. LUNGS: Bilateral scattered rhonchi. HEART: S1 and S2 heard. No gallop. But irregular. ABDOMEN: Soft, nontender. NEURO: Alert and awake. No asterixis. EXTREMITIES: No edema. No rash. No clubbing. : He has a Heard in place with scanty urine. VITAL SIGNS: Blood pressure was 110/60, pulse 90 per minute. LABORATORY DATA: Hemoglobin 10.3, platelets 206. Sodium 128, potassium 5.6, BUN , creatinine 6.72, lactic acid 5.1. Phosphorus 6.9. AST and ALT were elevated. Ammonia 73. Chest x-ray shows hyperinflation of the lungs. IMPRESSION: A 76-year-old man with squamous cell carcinoma of the vocal cord, hypertension, comes in with, 1. Acute kidney injury in the setting of hypotension. The differential diagnosis of acute kidney injury would include hypoperfusion from hypotension leading to ischemic acute tubular necrosis. Obstructive uropathy should be ruled out. He might have underlying glomerulonephritis, which also needs to be ruled out. 2. Hyperkalemia with metabolic acidosis. 3. acute kidney injury along with hyponatremia. My recommendation will be to obtain a spot urine for sodium, creatinine, and protein. Obtain imaging studies to rule out hydronephrosis. In the meantime, optimize his blood pressure and avoid hypotension to maintain adequate renal perfusion. Treat hyperkalemia medically with Lokelma orally. If renal function does not improve or the electrolyte imbalance worsens, he may require renal replacement therapy. Discussed with the ICU team and we will follow him along with the team. Brennan King MD BPA/MODL / [id number]
--- NOTE | 2021-05-03 12:18 | MHC.SLORD ---
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
--- NOTE | 2021-05-03 14:12 | PC.NURSE ---
Covering RN went into room and noticed that patient was not breathing.Dr. Cifuentes notified and came up to room at 1320 and pronounced patient. I called [facility] at 1329 and spoke to Melinda Lawrence and the organ bank declined. Family (daughter and ) notified by myself of patient passing. will be up to see patient soon. Report given to Александр.
--- NOTE | 2021-05-03 14:40 | P.EN_ITS ---
Event Note Date of Service: 05/03/21 Event Note: Pt met criteria for brain /( no heart sound, no lung shruthi nds, pupil dilalated and fixed, no response to painful stimuli) and pronounced at 1.20 pm. Familyh aware
--- NOTE | 2021-05-04 10:24 | PM.DDS ---
Discharge Sum: Prov Provider Primary care physician: Curt Perdomo MD Discharge Sum: Diag Contributing Factors (1) Septic shock: (2) UTI (urinary tract infection): (3) Acute renal failure: (4) RADHA (acute kidney injury): (5) Hematuria: (6) Metastatic cancer: (7) Hyperkalemia: Discharge Sum: Summary Date and Time Date of admission: 05/01/21 23:22 Date of : 05/03/21 Time of : 13:20 Summary Details: ? NOTE DISCHARGE DIAGNOSES: 1. 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 2. Acute renal failure. 3. Acute hepatic failure. 4. Metastatic cancer. 5. Metabolic encephalopathy. Mr. Calhoun was a 68-year-old male with past medical history of throat cancer, status post excision of a vocal cord lesion, and status post radiation therapy, last XRT treatment was a month or more ago. ?Had no chemotherapy. ?The patient also had a history of hypertension and atrial fibrillation. HISTORY OF PRESENT ILLNESS: ?The patient was reportedly doing well after his radiation therapy. ?Over the few days prior to admission, he had developed generalized weakness and poor po intake and was generally not feeling well. ?The patient's noticed that he was jaundiced. ?She brought him to the [facility] ED on May 01. In the ED at [facility], the patient was hypotensive and bradycardic. ?Room air saturation was 100%. ?He was afebrile. ?He was in no acute distress. ?He was talking and oriented, and denied fever chills or sweats. ?He denied cough or shortness of breath, or GI symptoms. ?The abdomen was benign, stool was guaiac negative. Labs in the ED at [facility] were notable for white count of 18, hemoglobin of 11, platelet count of 176. PT was 22/1.9. ?The sodium was 126, potassium 5.9, chloride 92, bicarb 19, BUN and creatinine 87/6.4, glucose 84, total bili 6.1, direct bili 5.1, AST/ALT 1196/233, albumin was 2.5, lipase was 904, 1st troponin was 20, the repeat troponin was 17, and lactic acid was 4.4. ?Urinalysis was notable for positive nitrite, large leukocyte esterase, 64 white cells, and heavy urine bacteria. ?COVID PCR was negative. Noncontrast chest CT was notable for a low-density lesion of the right lower lobe, concerning for neoplasm. ?There were mildly enlarged mediastinal lymph nodes, concerning for metastatic disease. Abdominal CT was notable for multiple liver lesions, likely representing metastatic disease. ?There was a small amount of abdominal-pelvic ascites. The patient was given Zosyn and volume resuscitated. ?Despite that, the blood pressure did not come up. ?A central line was placed and the patient was put on vasopressors. ?He was given hydrocortisone and Kayexalate. ?When no bed was available in the [facility] ICU, a call was placed to our ICU and the patient was accepted and transferred here directly from their ED. On arrival here, the patient was slightly the lethargic but able to answer questions. ?He was jaundiced. ?Labs here were notable for white count of 14, sodium of 128, BUN and creatinine of 87/6.5, potassium 5.2, a bicarb of 16, glucose of 29, phosphorus of 6.1, total bili of 6.3, lactic acid of 4.2. ?A venous blood gas showed 7.43/26/-5. ?EKG showed atrial fibrillation with diffuse low-voltage, with no ischemic changes.? The patient was given bicarbonate and D10. ?He was continued on Zosyn. The next morning, the patient was awake, slightly disoriented, with Kussmaul breathing, but otherwise nontoxic appearing. ?Respiratory rate was about 18, Sat was 96-100% on room air. ?Heart rate was 58, atrial fibrillation, blood pressure was 90/50 on Levophed at 0.44 mcg. ?Temperature was 96.9 degrees. ?The patient had marked JVD to the angle of the mandible. ?Chest was clear. ?Abdomen was benign. ?The patient had 1-2+ lower extremity and central edema. The patient denied any history of sleep apnea, but he did snore, according to his , and his facial habitus was very suggestive of RENATA. ?The patient's told me that his legs had been edematous for at least a few weeks. Labs were notable for sodium of 128, potassium 5.6, BUN/creatinine 88/6.7, bicarb 15, random glucose 42, lactic acid 5.1, phosphorus 6.9, T bili 6.6, ammonia level 73. Bedside echocardiogram showed the following: ?LV wall thickness probably normal, LV systolic function normal with EF at least 60%. ?The left ventricle was underfilled and the septum was markedly flattened. ?The right ventricle was markedly enlarged, with RV:LV cavity ratio at least 2.0-2.5. ?1-2 +MR. ?4+ TR, with a broad jet that half-filled the atrium, measuring 2.4m/sec (gradient 23mm). ?IVC measured 2.8cm. ?RVSP estimate was 38mm. Venous duplex scan showed no DVT. ?The patient underwent a perfusion scan, which showed no evidence of pulmonary embolism.? A follow-up lactate came back at 10. The patient was making no urine throughout the day.? Blood and urine cultures at [facility] showed no growth. I discussed the patient's situation at length with Dr. Martinez from Cardiology and Dr. Mar from Pulmonary.. ?None of us could come up with a good cause for his acute right heart failure. ?I attempted transfer to [facility]. ?There were no beds in the medical ICU. ?Their attending from the CCU had no ideas about the cause of his right heart failure, but felt quite certain that he was not going to survive. ?She had no suggestions in regards to treatment that might be salutary, and suggested [facility] PATHOLOGIST status. Dr. Urias in Radiology felt that the perfusion scan was an excellent study, and that there was very little chance that a significant pulmonary embolism was missed. ?She felt strongly that there was no reason to do a CT angiogram. After all the above, I spoke with the patient and his together, and let them know about the metastatic cancer, the acute right heart failure which was not likely to be survivable, and the renal failure for which he was definitely going to need dialysis. ?They both decided on comfort measures. Overnite the patient was obtunded, breathing with RR of 6-8/min on room air, Kussmaul respiratory pattern, with Sat 96%. ?HR is running 30-40, BP 56/31. ?He was comfortable.? He the next day, May 03, at 1:20pm. Additional Data Attending physician: Ismael Seals MD
--- NOTE | 2021-05-06 06:58 | P.CDIC_ITS ---
CDI Concurrent Query Service Date: 05/06/21 Documentation Clarification: Please clarify if you are treating a proba ble/suspected/likely or confirmed: PLEASE DO NOT DELETE/MODIFY EXISTING CONTENT Additional information is needed in order to code to the highest accuracy and appropriate Severity of Illness (SOI). Please clarify the information noted below in your progress notes and discharge summary. Risk Factors/Clinical Indicators/Treatments CDS: Genoveva Green Contact Number: Please Review the information above and exercise your independent professional judgment in responding to the query. If you concur, pleas document in the PROGRESS NOTES and DISCHARGE SUMMARY. If you do not agree with the query, please document in the query above. THIS QUERY IS PART OF THE PERMANENT MEDICAL RECORD
--- NOTE | 2021-05-06 06:59 | MHC.CDI.RETR ---
Documented by User: Genoveva Green CCS, CDIS 05/06/21 07:07 Retrospective Query Please clarify if you have treated a probable/suspected/likely or confirmed: Hepatic encephalopathy with coma Hepatic encephalopathy without coma Please specify if known or undetermined PLEASE DO NOT DELETE/MODIFY EXISTING CONTENT Additional information is needed in order to code to the highest accuracy and appropriate Severity of Illness (SOI). Please clarify the information noted below in your progress notes and discharge summary. Risk Factors/Clinical Indicators/Treatments PN: 05/02 - Septic shock due to possible UTI. PN: 05/03 - Acute hepatic failure most likey 2nd to cardiogenic shock. Event note: 05/03 - [facility] ICU 05/03 - patient not making urine throughout the day, obtunded breathing with Kussmaul respiratory pattern w sat 96%, HR 30-40 BP 56/31. Multiple organ system failure - CHIEF OF PEDIATRIC UROLOGY CDS: Genoveva Green CCS, CDIS Contact Number: [phone] Please Review the information above and exercise your independent professional judgment in responding to the query. If you concur, pleas document in the PROGRESS NOTES and DISCHARGE SUMMARY. If you do not agree with the query, please document in the query above. THIS QUERY IS PART OF THE PERMANENT MEDICAL RECORD Documented by User: Ismael Seals MD 05/06/21 09:15 Retrospective Query Provider Response: Hepatic Encephalopathy (without coma)
== END 2021-05-03 18:00 | disposition expired | DRG 871 ==
LOC: HO.ICU 05-02 13:56 → HO.IMC 05-03 09:12
PROVIDERS: Registered Nurse Community Health; Admitting Provider Internal Medicine Pulmonary Disease; PCP Pediatrics; Visit Provider Anesthesiology
DX: A41.9 Sepsis, unspecified organism (principal); R65.21 Severe sepsis with septic shock; G93.41 Metabolic encephalopathy; K72.00 Acute and subacute hepatic failure without coma; N39.0 Urinary tract infection, site not specified; N17.9 Acute kidney failure, unspecified; E87.2 Acidosis; C78.01 Secondary malignant neoplasm of right lung; C78.7 Secondary malignant neoplasm of liver and intrahepatic bile duct; C77.1 Secondary and unspecified malignant neoplasm of intrathoracic lymph nodes; R31.9 Hematuria, unspecified; R57.0 Cardiogenic shock; E66.9 Obesity, unspecified; E87.5 Hyperkalemia; Z85.21 Personal history of malignant neoplasm of larynx; G47.33 Obstructive sleep apnea (adult) (pediatric); I50.811 Acute right heart failure; K72.90 Hepatic failure, unspecified without coma; I48.91 Unspecified atrial fibrillation; Z68.33 Body mass index [BMI] 33.0-33.9, adult; E78.5 Hyperlipidemia, unspecified; Z87.891 Personal history of nicotine dependence; Z79.01 Long term (current) use of anticoagulants; Z79.899 Other long term (current) drug therapy; Z51.5 Encounter for palliative care
CPT/HCPCS: 36415; 71045; 78580; 80048; 80053; 82140; 82803; 82947; 83605; 83615; 83735; 84100; 84443; 84550; 85007; 85027; 87040; 92610; 93005; 93308; 93970; A9540; J1170; J1265; J2543; J3370; P9047